=== PATIENT | female | born 1960 | race Caucasian/White ===

== ENCOUNTER 2019-09-30 15:30 | Outpatient (RCR) | payer BC, SELFPAY | END 2019-10-18 12:35 | disposition home or self-care (01) | LOC: PT.CARL 15:30 | PROVIDERS: Visit Provider Family Medicine Sports Medicine | DX: S89.92XA Unspecified injury of left lower leg, initial encounter (principal) | CPT/HCPCS: 97010; 97014; 97110; 97163; G0283 ==

== ENCOUNTER → 2021-03-12 10:59 | Outpatient (CLI) | payer BC, SELFPAY ==
[2021-03-12 11:01] LABS: Microscopic, Urine URINE MICROSCOPIC (MICROSCOPIC)
[2021-03-12 11:40] LABS: Appearance,Urine CLEAR (Clear); Bilirubin,Urine Negative (Negative); Blood, Urine Negative (Negative); Color,Urine YELLOW (Yellow); Glucose,Urine (UA) Negative (Negative); Ketones,Urine Negative (Negative); Leukocyte Esterase,Urine Negative (Negative); Nitrate,Urine Negative (Negative); Protein,Urine Negative (Negative); Specific Gravity, Urine 1.015 (1.005-1.030); Urobilinogen,Urine 0.2 EU/dl (0.2)
== END ==
PROVIDERS: Visit Provider Family Medicine
DX: R30.0 Dysuria (principal)
CPT/HCPCS: 81001; 87086

== ENCOUNTER → 2023-02-17 11:16 | Outpatient (CLI) | payer BC, SELFPAY ==
--- NOTE | 2023-02-17 | CA_ITS ---
APPROVED REPORT Exam: Exercise Treadmill Technologist: Abril Graham, Ht: 5 ft 4 in Wt: 144 lbs BSA: 1.70 m2 HR: 61 bpm BP: 143/78 mmHg Rhythm: SR Medical History Medical History: Hyperlipidemia Medications: Estradiol,,,,, Fluoxetine,,,,, RoSUVASTATIN,,,,, Dexlansoprazole,,,,, Allergies: SULFA Cardiac Risk Factors: Hyperlipidemia, FHX of CAD Stress Test Details Test: Yayo HR Resting HR: 66 bpm Max Heart Rate (APMHR): 157 bpm Max HR Achieved: 169 bpm Target HR (85% APMHR): 133 bpm % of APMHR: 108 Recovery HR: 89 bpm HR response to stress: Normal HR response to stress BP Resting BP: 143.0/78 mmHg Max BP: 191/80 mmHg Recovery BP: 146.0/82.0 mmHg BP response to stress: Normal blood pressure response to stress. ECG Resting ECG: NSR Stress EC.[address] depression Arrhythmia: PACs Recovery ECG: Return to baseline within 5 minutes of recovery Recovery Arrhythmia: None Clinical Exercise duration: 10:31 min Highest Stage Achieved: Exercise capacity: 12.8 METs Overall Exercise Capacity for Age: Good Stress ECG Conclusion MAX HR: 169 % OF PM: 108 MAX BP: 191/80 The patient was able to exercise for a total of 10m, 31s. She achieved a total of 12.8 METs. She has a good exercise capacity compared to age and sex matched peers. She has a normal HR and BP response to exercise. METS: 12.8 TEST STOPPED DUE TO: PATIENT REQUEST SYMPTOMS: HEART FLUTTER PAC 1.[address] DEPRESSION CONCLUSION GOOD EXERCISE CAPACITY ABNORMAL EKG RESPONSE TO EXERCISE. FINDINGS ARE SUGGESTIVE OF UNDERLYING ISCHEMIA. MYOVIEW IMAGES ARE REPORTED SEPARATELY. Test Summary REST . . . . . . . Standing REST . . . . . . . Sitting REST 03:41 0.0 1.2 66 . 143/ 78 . . Stage 1 01:00 10.0 1.7 86 . . . . Stage 1 02:00 10.0 1.7 97 . . . . Stage 1 03:00 10.0 1.7 96 . 152/ 70 . . Stage 2 01:00 12.0 2.5 114 . . . . Stage 2 02:00 12.0 2.5 124 . . . . Stage 2 03:00 12.0 2.5 129 . 160/ 70 . . Stage 3 01:00 14.0 3.4 150 . . . . Stage 3 02:00 14.0 3.4 159 . . . . Stage 3 03:00 14.0 3.4 163 . 174/ 78 . . Stage 4 . . . . . . . Myoview Injected Stage 4 01:00 16.0 4.2 169 . . . . Stage 4 01:31 16.0 4.2 169 . . . Stop exercise at 10:31 RECOVERY 01:00 0.0 0.0 146 . 185/ 76 . . RECOVERY 02:00 0.0 0.0 112 . 185/ 76 . . RECOVERY 03:00 0.0 0.0 97 . 191/ 80 . . RECOVERY 04:00 0.0 0.0 90 . 156/ 88 . . RECOVERY 04:50 0.0 0.0 90 . 146/ 82 . . Electronically signed by : Janneth Moseley, 02/17/2023 22:22:47
--- NOTE | 2023-02-17 11:17 | NM_ITS ---
APPROVED REPORT Exam: Nuclear Stress Test Indication: chest pain..palpitations Patient Location: Outpatient Stress Tech: Abril Graham HI Tech:Emily Farfan SHARI RT(R)(N) Ht: 5 ft 4 in Wt: 139 lbs Bra Size: 34b HR: 66 bpm BP: 143/78 mmHg BSA: 1.68 m2 Rhythm: NSR TID: 0.87 BMI: 23.8 History: chest pain..palpitations Procedure: Patient exercised on Yayo protocol 10:31 minutes and sec, resting heart rate 66 bpm, resting blood pressure 143/78 mmHg, with exercise maximum heart rate achived was 169 bpm which is 108 % of the maximum predicted heart rate and blood pressure was 191/80 mmHg. Patient denied any complaint of chest pain. Patient has good exercise capacity, achieved 12.8 METs of workload on treadmill, the blood pressure response to exercise was normal. Cardiac Stress and Resting SPECT Images: Cardiac Stress and Resting SPECT images were obtained using technetium 99m Myoview 31.3 mCi stress and 10.55 mCi at rest. This is a technically difficult study due to soft tissue overlying the cardiac borders on raw imaging, as well as significant GI tracer uptake in close proximity to the cardiac borders. These may affect the diagnostic interpretation of the study findings. Raw images demonstrate possible RV dilation. Resting and stress in supine position demonstrate a medium-sized, moderate, fixed perfusion defect in the inferior wall. This is no longer visualized with prone stress imaging. Findings are suggestive of artifact. No definite evidence of fixed or reversible perfusion defects. Gated imaging demonstrates normal global and regional LV systolic function. LVEF is calculated at 58% Conclusion: This is a technically difficult study due to soft tissue overlying the cardiac borders on raw imaging, as well as significant GI tracer uptake in close proximity to the cardiac borders. These may affect the diagnostic interpretation of the study findings. Raw images demonstrate possible RV dilation. No definite evidence of fixed or reversible perfusion defects. Gated imaging demonstrates normal global and regional LV systolic function. LVEF is calculated at 58% Electronically signed by : Janneth Moseley, 02/17/2023 22:28:07
== END ==
PROVIDERS: PCP Family Medicine; Visit Provider Nurse Practitioner Family
DX: R07.89 Other chest pain (principal); E78.5 Hyperlipidemia, unspecified
CPT/HCPCS: 78452; 93017; 93306; A9502